=== PATIENT | male | born 1950 | race Two or more races ===

== ENCOUNTER 2025-03-12 05:54 | Inpatient (IN) | payer OTHER ==
[~2025-03-12] VITALS: Ht 188 cm; Wt 96.6 kg
--- NOTE | 2025-03-12 06:29 | ED.PDOC ---
HPI Comments 74-year-old male with PMHx of HTN presents to the ED with a chief complaint of palpitations onset today. Patient states he woke up this morning experiencing palpitations, checked his BP and was elevated. Upon ED arrival, BP was 413/74, HR 91, states symptoms have improved since then. Denies fever, chills, cough, cold, congestion, dizziness, abdominal pain, nausea, vomiting, diarrhea, dysuria, hematuria, headache. No other symptoms or modifying factors present at this time. Chief Complaint: Palpitations Time Seen by MD: 06:10 Reviewed Notes: Medications, Allergies Allergies: Coded Allergies: NO KNOWN ALLERGIES (Unverified , 03/12/25) Information Source: Patient, Relative Mode of Arrival: Wheelchair Severity: Moderate Timing: Hours Duration: Since onset Prehospital treatment: None Onset: At Rest Cardiac Risk Factors: HTN PE Risk Factors: None History of: None Modifying Factors: Nothing Associated Signs and Symptoms: Palpitations Past Medical History PAST MEDICAL HISTORY: HTN Surgical History: Hernia Repair Family History Family History: Reviewed,noncontributory to illness, No family hx of Cancer, No family hx of DM, No family hx of Heart gaetano, No family hx of HTN, No family hx ofKidney gaetano, No family hx of Liver gaetano, No family hx of Lung gaetano, No family hx of Stroke Social History Smoker: Non-Smoker Alcohol: Denies ETOH Use Drugs: Denies Drug Use Lives In: Home Constitutional: denies: chills, diaphoresis, fatigue, fever, malaise, sweats, weakness, others EENTM: denies: blurred vision, double vision, ear bleeding, ear discharge, ear drainage, ear pain, ear ringing, eye pain, eye redness, hearing loss, mouth pain, mouth swelling, nasal discharge, nose bleeding, nose congestion, nose pain, photophobia, tearing, throat pain, throat swelling, voice changes, others Respiratory: denies: cough, hemoptysis, orthopnea, SOB at rest, shortness of breath, SOB with excertion, stridor, wheezing, others Cardiovascular: reports: palpitations, others (hypertension); denies: chest pain, dizzy spells, diaphoresis, Dyspnea on exertion, edema, irregular heart beat, left arm pain, lightheadedness, PND, syncope Gastrointestinal: denies: abdomen distended, abdominal pain, blood streaked bowels, constipated, diarrhea, dysphagia, difficulty swallowing, hematemesis, melena, nausea, poor appetite, poor fluid intake, rectal bleeding, rectal pain, vomiting, others Genitourinary: denies: burning, dysuria, flank pain, frequency, hematuria, incontinence, penile discharge, penile sore, pain, testicle pain, testicle swelling, urgency, others Neurological: denies: dizziness, fainting, headache, left sided numbness, left sided weakness, numbness, paresthesia, pre-existing deficit, right sided numbness, right sided weakness, seizure, speech problems, tingling, tremors, weakness, others Musculoskeletal: denies: back pain, gout, joint pain, joint swelling, muscle pain, muscle stiffness, neck pain, others Integumetry: denies: bruises, change in color, change in hair/nails, dryness, laceration, lesions, lumps, rash, wounds, others Allergic/Immunocompromised: denies: Difficulty Healing, Frequent Infections, Hives, Itching, others Hematologic/Lymphatic: denies: anemia, blood clots, easy bleeding, easy bruising, swollen glands, others Endocrine: denies: excessive hunger, excessive sweating, excessive thirst, excessive urination, flushing, intolerance to cold, intolerance to heat, unexplained weight gain, unexplained weight loss, others Psychiatric: denies: anxiety, bipolar disorder, depression, hopeless, panic disorder, schizophrenia, sleepless, suicidal, others All Other Systems: Reviewed and Negative Physical Exam General Appearance: Moderate Distress, Normal HEENT: Normal ENT Inspection, Pharynx Normal, TMs Normal Neck: Full Range of Motion, Non-Tender, Normal, Normal Inspection Respiratory: Chest Non-Tender, Lungs Clear, No Accessory Muscle Use, No Respiratory Distress, Normal Breath Sounds Cardiovascular: No Edema, No JVD, No Murmur, No Gallop, Normal Peripheral Pulses, Regular Rate/Rhythm Breast Exam: Deferred Gastrointestinal: No Organomegaly, Non Tender, No Pulsatile Mass, Normal Bowel Sounds, Soft Genitalia: Deferred Pelvic: Deferred Rectal: Deferred Extremities: No calf tenderness, Normal capillary refill, Normal inspection, Normal range of motion, Non-tender, No pedal edema Musculoskeletal : Apperance: Normal Neurologic: Alert, executive legal secretary II-XII nml as Tested, No Motor Deficits, Normal Affect, Normal Mood, No Sensory Deficits Cerebellar Function: Normal Reflexes: Normal Skin: Dry, Normal Color, Warm Peripheral Pulses: 3+ Radial (R), 3+ Radial (L) Lymphatic: No Adenopathy EKG EKG : Pulse Rate (adult): 81 Cardiac Rhythm: NSR Was a procedure done? Was a procedure done?: No CP Differential Dx Differential Diagnosis: A-fib, A-Flutter, Angina, Anxiety / Panic Attack, Atr ial Dysrhythmia, Electrolyte Disorder X-Ray, Labs, Meds, VS Vital Signs Date Time Temp Pulse Resp B/P (MAP) Pulse Ox O2 Delivery O2 Flow Rate FiO2 03/12/25 07:51 98.2 62 16 141/70 (93) 94 98.2 03/12/25 07:11 76 03/12/25 06:29 81 03/12/25 05:57 98.0 91 20 143/74 98 98.0 Lab Test 03/12/25 07:10 03/12/25 06:14 Range/Units Troponin I High Sensitivity 28 18 </=54 ng/L White Blood Count 8.0 4.4-10.8 10^3/uL Red Blood Count 4.64 4.5-5.90 10^6/uL Hemoglobin 14.5 13.5-17.5 g/dL Hematocrit 43.8 41.0-53.0 % Mean Corpuscular Volume 94.3 80.0-100.0 fL Mean Corpuscular Hemoglobin 31.3 28.0-32.0 pg Mean Corpuscular Hemoglobin Concent 33.1 32.0-36.0 g/dL Red Cell Distribution Width 14.0 11.8-14.3 % Platelet Count 269 140-450 10^3/uL Mean Platelet Volume 9.2 6.9-10.8 fL Neutrophils (%) (Auto) 74.9 37.0-80.0 % Lymphocytes (%) (Auto) 12.0 10.0-50.0 % Monocytes (%) (Auto) 11.0 0.0-12.0 % Eosinophils (%) (Auto) 1.2 0.0-7.0 % Basophils (%) (Auto) 0.9 0.0-2.0 % Neutrophils # (Auto) 6.0 1.6-8.6 10 ^3/uL Lymphocytes # (Auto) 1.0 0.4-5.4 10 ^3/uL Monocytes # (Auto) 0.9 0-1.3 10 ^3/uL Eosinophils # (Auto) 0.1 0-0.8 10 ^3/uL Basophils # (Auto) 0.1 0-0.2 10 ^3/uL Nucleated Red Blood Cells 0.1 % Sodium Level 137 136-145 mmol/L Potassium Level 4.0 3.5-5.1 mmol/L Chloride Level 100 98-107 mmol/L Carbon Dioxide Level 27 20-31 mmol/L Anion Gap 10 5-15 Blood Urea Nitrogen 13 9-23 mg/dL Creatinine 0.82 0.700-1.30 mg/dL Glomerular Filtration Rate Calc 91 >90 mL/min BUN/Creatinine Ratio 15.9 10.0-20.0 Serum Glucose 111 H 74-106 mg/dL Calcium Level 9.6 8.7-10.4 mg/dL Patient alert. Came in because of chest pain. Vitals stable. Answering questions. EKG reviewed does not show any acute changes. No sign of distress. Blood pressure slightly high. He does take his medication. Explained to the patient. Continue monitoring. [place] [address] Ph: [phone] DIAGNOSTIC IMAGING Diagnostic Imaging Report : [id number] Signed PATIENT: SYLVIA REGAN ACCT: [id number] UNIT: [id number] : 1950 LOC: ER ROOM / BED: / AGE / SEX: 74 / M ADM STATUS: REG ER SERVICE 9 ORDERING PHYSICIAN: SHONDA DAWKINS MD PROCEDURE(s): CXRP - CHEST PORTABLE REASON: sob ORDER NUMBER(s): [id number], ACCESSION NUMBER(s): [id number] CHEST RADIOGRAPH Indication: sob Technique: Single frontal view of the chest was obtained. Comparison: None FINDINGS: Lines and Tubes: None Lungs: No focal consolidation. Pleura: No effusion. No pneumothorax. Cardiomediastinal contours: Unremarkable Bones: No acute osseous abnormality. IMPRESSION: 1. No acute cardiopulmonary disease. ATED BY: PATRICIA MILLIGAN MD DICTATED DATE/TIME: 03/12/25750 SIGNED BY: PATRICIA MILLIGAN MD SIGNED DATE/TIME: 03/12/25750 CC: Time of 1ST Reevaluation: 06:40 Reevaluation 1ST: Unchanged Patient Education/Counseling: Diagnosis, Treatment, Prognosis Family Education/Counseling: Diagnosis, Treatment, Prognosis SEPSIS Sepsis Screen Date sepsis recognized/suspect: Mar 12, 2025 Time Sepsis recognized/suspect: 0558 Recent Procedure: No On Antibiotic Therapy: No Respiratory Rate >20: No Heart Rate >90: Yes Temp<36 C (96.8 F) or >38.3 C: No SBP <90 or MAP <65 mmHG: No New Acute Mental Status Change: No Is the patient on CPAP, BIPAP,: No Physician Orders Chest Portable (03/12/25 06:30) Urinalysis (03/12/25 06:30) Troponin-I Hs (03/12/25 09:30) Vital Signs Date Time Temp Pulse Resp B/P (MAP) Pulse Ox O2 Delivery O2 Flow Rate FiO2 03/12/25 07:51 98.2 62 16 141/70 (93) 94 98.2 03/12/25 07:11 76 03/12/25 06:29 81 03/12/25 05:57 98.0 91 20 143/74 98 98.0 Laboratory Tests Test 03/12/25 06:14 White Blood Count 8.0 10^3/uL (4.4-10.8) Departure 1 Departure Time of Disposition: 06:48 Impression: Primary Impression: Chest pain of unknown etiology Additional Impression: Hypertension Qualified Codes: I10 - Essential (primary) hypertension Disposition: 09 ADMITTED INPATIENT Admit to: Med Surg Condition: Guarded Critical Care Note Critical Care Time?: No Stability Stability form required: No Heart Score Heart Score: Heart Score Response (Comments) Value History Slightly Suspicious 0 EKG Normal 0 Age >65 2 Risk Factors >3 or Hx ASHD 2 Troponin Normal limit 0 Total 4 I personally scribed for SHONDA DAWKINS MD ([email or web address]) on 03/12/25 at 06:29. Electronically submitted by Pamela Norman ([email or web address]). I personally scribed for SHONDA DAWKINS MD ([email or web address]) on 03/12/25 at 06:30. Electronically submitted by Pamela Norman ([email or web address]). I personally scribed for SHONDA DAWKINS MD ([email or web address]) on 03/12/25 at 08:00. Electronically submitted by Pamela Norman ([email or web address]). SHONDA DAWKINS MD Mar 12, 2025 06:29
[2025-03-12 07:01] LABS: Hematocrit 43.8 % (41.0-53.0); Hemoglobin 14.5 g/dL (13.5-17.5); Mean Corpuscular Hemoglobin 31.3 pg (28.0-32.0); Mean Corpuscular Volume 94.3 fL (80.0-100.0); Nucleated Red Blood Cells % 0.1 %
[2025-03-12 07:10] LABS: Chloride 100 mmol/L (98-107); Potassium 4.0 mmol/L (3.5-5.1); Sodium 137 mmol/L (136-145)
[2025-03-12 07:11] LABS: Anion Gap 10 (5-15); Carbon Dioxide 27 mmol/L (20-31)
[2025-03-12 07:12] LABS: Calcium 9.6 mg/dL (8.7-10.4)
--- NOTE | 2025-03-12 07:15 | ECG ---
[facility] Test Date: 2025-03-12 Test Time: 06:07:03 Pat Name: SYLVIA REGAN Department: Room: [address] [place] [address] Gender: M Release Engineer: ALICIA : 1950 Requested By: SHONDA DAWKINS Order Number: [id number] Reading MD: Aneesh Borrego Measurements Intervals [place] Rate: 84 P: 65 SD: 156 QRS: 88 QRSD: 92 T: -12 QT: 372 QTc: 440 Interpretive Statements Sinus rhythm Probable left atrial enlargement Borderline right axis deviation Nonspecific repol abnormality, diffuse leads Electronically Signed On 03-12-2025 15:08:57 PST by Aneesh Borrego Please click the below link to view image of tracing.
[2025-03-12 07:16] LABS: BUN/Creatinine Ratio 15.9 (10.0-20.0); Blood Urea Nitrogen 13 mg/dL (9-23)
[2025-03-12 07:19] LABS: Glucose 111 mg/dL (74-106)
--- NOTE | 2025-03-12 07:53 | DVH ---
CHEST RADIOGRAPH Indication: sob Technique: Single frontal view of the chest was obtained. Comparison: None FINDINGS: Lines and Tubes: None Lungs: No focal consolidation. Pleura: No effusion. No pneumothorax. Cardiomediastinal contours: Unremarkable Bones: No acute osseous abnormality. IMPRESSION: 1. No acute cardiopulmonary disease.
[2025-03-12 08:54] LABS: Urine Protein, UAD 1+ (Negative)
[2025-03-12] MEDS ORDERED: DOCUSATE SOD 100 MG CAP PO PRN (09:30)
[2025-03-12] MEDS ORDERED: HYDROcodone-ACET 5/325MG TAB PO PRN (09:30)
[2025-03-12] MEDS ORDERED: ONDANSETRON HCL 4 MG/2 ML VIAL IV PRN (09:30)
[2025-03-12] MEDS: LOSARTAN POTASSIUM 50 MG TAB PO SCH (10:00)
[2025-03-12] MEDS ORDERED: NITROGLYCERIN 0.4 MG SL TAB SL PRN (10:00)
[2025-03-12] MEDS ORDERED: MORPHINE SULFATE INJ 2 MG/ml SYRG IV PRN (10:00)
--- NOTE | 2025-03-12 10:07 | DVHHP2 ---
History of Present Illness Reason for Visit: Palpitations History of Present Illness The patient is a 74-year-old male with past medical history of hypertension who presented to [facility] ED with complaint of palpitations. Patient reports that symptoms wake him up this morning with elevated blood pressure 213/74, heart rate 91, so he decided to come to the ED. Patient was seen and evaluated in the ED, laboratory data shows WBC 8.0, platelets 269, sodium 137, potassium 4.0, BUN 13, creatinine 0.82, GFR 91, glucose 111, calcium 9.6, troponin 18, blood pressure 141/70, heart rate 62, temperature 98.2 F, O2 saturation 95% on room air. Chest x-ray show no acute cardiopulmonary disease. Please see medication orders section in the computer. On my assessment, son at bedside, patient denied chest pain, no headache, dizziness, diaphoresis, shortness of breaths, no diarrhea, nausea, vomiting, fever, no chills. Patient was admitted for further evaluation and medical management. Past Medical History HTN Past Surgical History Hernia Repair Family History Reviewed, noncontributory to the management of this case. Past Social History The patient lives at home, denies smoking, alcohol or illicit drugs abuse. Review of Systems Constitutional: Yes: Weakness; No: Fever, Chills, Sweats, Malaise, Other Eyes: No: Pain, Vision change, Conjunctivae inflammation, Eyelid inflammation, Other, Redness ENT: No: Ear pain, Ear discharge, Nose pain, Nose discharge, Nose congestion, Mouth pain, Mouth swelling, Throat pain, Throat swelling, Other Respiratory: No: Cough, Dry, Shortness of breath, SOB with excertion, Wheezing, Hemoptysis, Pleuritic Pain, Sputum, Wheezing, Other Cardiovascular: Chest Pain, Palpitations; No: Orthopnea, Paroxysmal Noc. Dyspnea, Edema, Lt Headedness, Other Gastrointestinal: No: Nausea, Vomiting, Abdominal Pain, Diarrhea, Constipation, Melena, Hematochezia, Other Genitourinary: No Dysuria, No Frequency, No Incontinence, No Hematuria, No Retention, No Other Musculoskeletal: No: other, neck pain, shoulder pain, arm pain, back pain, hand pain, leg pain, foot pain Skin: No: Rash, Lesions, Jaundice, Bruising, Other Neurological: No: Weakness, Numbness, Incoordination, Change in speech, Confusion, Seizures, Other Allergies: Coded Allergies: NO KNOWN ALLERGIES (Unverified , 03/12/25) Medications Current Medications Medications Dose Ordered Sig/Vanessa Route Start Time Stop Time Status Last Admin Dose Admin Aspirin 81 mg DAILY PO 03/12/25 10:00 Losartan Potassium 50 mg DAILY PO 03/12/25 10:00 Amlodipine Besylate 5 mg DAILY PO 03/12/25 10:00 Hydralazine HCl 10 mg Q6HP PRN IV 03/12/25 09:30 Sodium Chloride 1,000 ml @ 60 mls/hr [id number] IV 03/12/25 09:30 Acetaminophen/ Hydrocodone Bitart 1 tab Q4HP PRN PO 03/12/25 09:30 Ondansetron HCl 4 mg Q4HP PRN IV 03/12/25 09:30 Docusate Sodium 100 mg BIDPRN PRN PO 03/12/25 09:30 Acetaminophen 650 mg Q6HP PRN PO 03/12/25 09:30 Exam Vital Signs Vital Signs Date Time Temp Pulse Resp B/P (MAP) Pulse Ox O2 Delivery O2 Flow Rate FiO2 03/12/25 07:51 98.2 62 16 141/70 (93) 94 98.2 General Appearance: Alert, Oriented X3, Cooperative, No acute distress HEENT: Atraumatic, PERRLA, EOMI, Mucous membr. moist/pink Respiratory: Normal air movement Cardiovascular: Regular rate, Normal S1, Normal S2, No murmurs Abdominal: Normal bowel sounds, Soft, No tenderness, No hepatospenomegaly, No masses Extremities: No clubbing, No cyanosis, No edema, Normal pulses, No tenderness/swelling Skin: No rashes, No significant lesion Neuro: Normal speech, Normal tone, Sensation intact, Cranial nerves 3-12 NL, Reflexes 2+, Other (Generalized weakness) Psych/Mental Status: Mental status NL, Mood NL Labs/Xrays Labs Test 03/12/25 09:14 03/12/25 08:06 03/12/25 06:14 Range/Units Urine Color Yellow Yellow Urine Clarity Clear Clear Urine pH 6.0 5.0-9.0 Urine Specific [place] 1.021 1.001-1.035 Urine Protein 1+ H Negative Urine Ketones 1+ H Negative Urine Blood 1+ H Negative /uL Urine Nitrite Negative Negative Urine Bilirubin Negative Negative Urine Urobilinogen Normal Negative mg/dL Urine Leukocyte Esterase Negative Negative /uL Urine RBC 7 0 - 3 /hpf Urine Microscopic WBC < 1 0-3 /HPF Urine Squamous Epithelial Cells None seen <5 /hpf Urine Bacteria None seen None Seen /hpf Urine Glucose Normal Normal mg/dL White Blood Count 8.0 4.4-10.8 10^3/uL Red Blood Count 4.64 4.5-5.90 10^6/uL Hemoglobin 14.5 13.5-17.5 g/dL Hematocrit 43.8 41.0-53.0 % Mean Corpuscular Volume 94.3 80.0-100.0 fL Mean Corpuscular Hemoglobin 31.3 28.0-32.0 pg Mean Corpuscular Hemoglobin Concent 33.1 32.0-36.0 g/dL Red Cell Distribution Width 14.0 11.8-14.3 % Platelet Count 269 140-450 10^3/uL Mean Platelet Volume 9.2 6.9-10.8 fL Neutrophils (%) (Auto) 74.9 37.0-80.0 % Lymphocytes (%) (Auto) 12.0 10.0-50.0 % Monocytes (%) (Auto) 11.0 0.0-12.0 % Eosinophils (%) (Auto) 1.2 0.0-7.0 % Basophils (%) (Auto) 0.9 0.0-2.0 % Neutrophils # (Auto) 6.0 1.6-8.6 10 ^3/uL Lymphocytes # (Auto) 1.0 0.4-5.4 10 ^3/uL Monocytes # (Auto) 0.9 0-1.3 10 ^3/uL Eosinophils # (Auto) 0.1 0-0.8 10 ^3/uL Basophils # (Auto) 0.1 0-0.2 10 ^3/uL Nucleated Red Blood Cells 0.1 % Sodium Level 137 136-145 mmol/L Potassium Level 4.0 3.5-5.1 mmol/L Chloride Level 100 98-107 mmol/L Carbon Dioxide Level 27 20-31 mmol/L Anion Gap 10 5-15 Blood Urea Nitrogen 13 9-23 mg/dL Creatinine 0.82 0.700-1.30 mg/dL Glomerular Filtration Rate Calc 91 >90 mL/min BUN/Creatinine Ratio 15.9 10.0-20.0 Serum Glucose 111 H 74-106 mg/dL Calcium Level 9.6 8.7-10.4 mg/dL PATIENT: SYLVIA REGAN ACCT: [id number] UNIT: [id number] : 1950 LOC: ER ROOM / BED: / AGE / SEX: 74 / M ADM STATUS: REG ER SERVICE 9 ORDERING PHYSICIAN: SHONDA DAWKINS MD PROCEDURE(s): CXRP - CHEST PORTABLE REASON: sob ORDER NUMBER(s): [id number], ACCESSION NUMBER(s): [id number] CHEST RADIOGRAPH Indication: sob Technique: Single frontal view of the chest was obtained. Comparison: None FINDINGS: Lines and Tubes: None Lungs: No focal consolidation. Pleura: No effusion. No pneumothorax. Cardiomediastinal contours: Unremarkable Bones: No acute osseous abnormality. IMPRESSION: 1. No acute cardiopulmonary disease. SEPSIS Sepsis Screen Date sepsis recognized/suspect: Mar 12, 2025 Time Sepsis recognized/suspect: 808 Recent Procedure: No On Antibiotic Therapy: No Respiratory Rate >20: No Heart Rate >90: No Temp<36 C (96.8 F) or >38.3 C: No SBP <90 or MAP <65 mmHG: No New Acute Mental Status Change: No Is the patient on CPAP, BIPAP,: No Physician Orders Chest Portable (03/12/25 06:30) Troponin-I Hs (03/12/25 09:30) Aspirin Chewable Tablet (03/12/25 10:00) Losartan Tablet (Cozaar Tablet) (03/12/25 10:00) Amlodipine Tablet (Norvasc Tablet) (03/12/25 10:00) Hydralazine Injection (Apresoline Inject (03/12/25 09:30) Allergies (03/12/25 09:21) Code Status (03/12/25 09:21) Sodium Chloride 0.9% (03/12/25 09:30) Oxygen Per Hour (03/12/25 09:21) Hydrocodone-Acet 5/325mg Tab ([place] 5/32 (03/12/25 09:30) Ondansetron Hcl (Zofran) (03/12/25 09:30) Docusate Sodium Capsule (Colace Capsule) (03/12/25 09:30) Fall Risk Precautions In Place QSHIFT (03/12/25 09:21) Complete Blood Count (03/13/25 04:00) Comprehensive Metabolic Panel (03/13/25 04:00) Cardiac Diet-2gna,Lofat,Lochol (03/12/25 Breakfast) Condition: Serious (03/12/25 09:21) Acetaminophen Tablet (Tylenol Tablet) (03/12/25 09:30) Maintain Bed Rest (03/12/25 09:21) Sequential Compression Device (03/12/25 ) Vital Signs Date Time Temp Pulse Resp B/P (MAP) Pulse Ox O2 Delivery O2 Flow Rate FiO2 03/12/25 07:51 98.2 62 16 141/70 (93) 94 98.2 03/12/25 07:11 76 03/12/25 06:29 81 03/12/25 05:57 98.0 91 20 143/74 98 98.0 Laboratory Tests Test 03/12/25 06:14 White Blood Count 8.0 10^3/uL (4.4-10.8) Assessment/Plan Assessment/Plan Chest pain of unknown etiology Hypertension Palpitations Generalized weakness Plan 1. Admit to telemetry unit 2. Breathing treatment 3. Pain control management 4. Management of fluids and electrolytes 5. Consultation for hospitalist 6. Diagnostic tests chest x-ray 7. DVT prophylaxis-on aspirin 8. Repeat labs CBC, CMP in a.m. 9. Continue with current medical management 10. Treatment plan discussed with patient and RN. Patient verbalized understanding. Plan discussed with: Patient, Other (RN) My Orders Orders - JUANA HOPKINS DNP Procedure Category Date Status Time Aspirin Chewable PHA 03/12/25 In Process Tablet 10:00 Losartan Tablet PHA 03/12/25 In Process (Cozaar Tablet) 10:00 Amlodipine Tablet PHA 03/12/25 In Process (Norvasc Tablet) 10:00 Hydralazine Injection PHA 03/12/25 In Process (Apresoline Inject 09:30 Allergies TESHA 03/12/25 In Process 09:21 Code Status CODE 03/12/25 Transmitted 09:21 Sodium Chloride 0.9% PHA 03/12/25 In Process 09:30 Oxygen Per Hour RT 03/12/25 Transmitted 09:21 Hydrocodone-Acet PHA 03/12/25 In Process 5/325mg Tab ([place] 09:30 Ondansetron Hcl PHA 03/12/25 In Process (Zofran) 09:30 Docusate Sodium PHA 03/12/25 In Process Capsule (Colace 09:30 Fall Risk Precautions TESHA 03/12/[address] 09:21 Complete Blood Count LAB 03/13/25 Verified 04:00 Comprehensive LAB 03/13/25 Verified Metabolic Panel 04:00 Cardiac DIET 03/12/25 Transmitted Diet-2gna,Lofat,Lochol Breakfast Condition: Serious TESHA 03/12/25 In Process 09:21 Acetaminophen Tablet PHA 03/12/25 In Process (Tylenol Tablet) 09:30 Maintain Bed Rest TESHA 03/12/25 In Process 09:21 Sequential TESHA 03/12/25 In Process Compression Device Problem List: (1) Chest pain of unknown etiology (2) Hypertension (3) Palpitations (4) Generalized weakness Date of Service: Mar 12, 2025 Billing Provider: JUANA HOPKINS DNP Common Visit Codes: 36032-FOHPGFG INP/OBS CARE (HIGH) JUANA HOPKINS DNP Mar 12, 2025 10:07
[2025-03-12] MEDS: SODIUM CHLORIDE 0.9% 1,000 ML IV SCH (11:27)
[2025-03-12 14:00] VITALS: PULSE 63; RESP 16; O2SAT 94
[2025-03-12 20:26] VITALS: BP 188/81; PULSE 76; RESP 18; TEMP 97.4; O2SAT 92
[2025-03-12] MEDS ORDERED: LOSA-534 PO (20:35)
[2025-03-12] MEDS ORDERED: CLON0.1T PO (20:35)
[2025-03-12] MEDS ORDERED: AMLO1TAB22 PO (20:35)
[2025-03-12 20:37] VITALS: BP 188/81; PULSE 76; RESP 18; TEMP 97.4; O2SAT 92
[2025-03-12] MEDS: hydrALAZINE HCL 20 MG/ML VL IV PRN (22:00)
[2025-03-13] VITALS (8 sets, daily range): BP systolic 135–174; BP diastolic 64–76; PULSE 57–85; RESP 17–22; TEMP 97.5–99.8; O2SAT 89–95
[2025-03-13 06:03] LABS: Hematocrit 39.3 % (41.0-53.0); Hemoglobin 13.6 g/dL (13.5-17.5); Mean Corpuscular Hemoglobin 32.3 pg (28.0-32.0); Mean Corpuscular Volume 93.0 fL (80.0-100.0); Nucleated Red Blood Cells % 0.0 %
[2025-03-13 06:27] LABS: Alanine Aminotransferase 12 U/L (7-40); Albumin 3.7 g/dL (3.2-4.8); Alkaline Phosphatase 50 U/L (46-116); Anion Gap 9 (5-15); BUN/Creatinine Ratio 21.2 (10.0-20.0); Blood Urea Nitrogen 14 mg/dL (9-23); Calcium 9.1 mg/dL (8.7-10.4); Carbon Dioxide 25 mmol/L (20-31); Chloride 104 mmol/L (98-107); Potassium 3.9 mmol/L (3.5-5.1); Sodium 138 mmol/L (136-145); Total Protein 7.1 g/dL (5.7-8.2)
[2025-03-13 06:28] LABS: Bilirubin, Total 0.7 mg/dL (0.2-1.0)
[2025-03-13 06:31] LABS: Glucose 111 mg/dL (74-106)
--- NOTE | 2025-03-13 14:04 | DVHPN2 ---
Subjective Patient denies any symptoms at this time Reviewed: Care Plan, H&P, Labs, Medications, Previous Orders Changes from previous H/P or p: No Changes Eyes: No Pain, No Vision change, No Conjunctivae inflammation, No Eyelid inflammation, No Other, No Redness ENT: No Ear pain, No Ear discharge, No Nose pain, No Nose discharge, No Nose congestion, No Mouth pain, No Mouth swelling, No Throat pain, No Throat swelling, No Other Cardiovascular: Chest Pain, Palpitations; No Orthopnea, No Paroxysmal Noc. Dyspnea, No Edema, No Lt Headedness, No Other Respiratory: No Cough, No Dry, No Shortness of breath, No SOB with excertion, No Wheezing, No Hemoptysis, No Pleuritic Pain, No Sputum, No Other Gastrointestinal: No Nausea, No Vomiting, No Abdominal Pain, No Diarrhea, No Constipation, No Melena, No Hematochezia, No Other Genitourinary: No Dysuria, No Frequency, No Incontinence, No Hematuria, No Retention, No Other Musculoskeletal: No other, No neck pain, No shoulder pain, No arm pain, No back pain, No hand pain, No leg pain, No foot pain Skin: No Rash, No Lesions, No Jaundice, No Bruising, No Other Objective Vitals Vital Signs Date Time Temp Pulse Resp B/P (MAP) Pulse Ox O2 Delivery O2 Flow Rate FiO2 03/13/25 12:27 97.7 66 17 163/75 (104) 95 97.7 03/13/25 08:00 Room Air* 0 21 Intake/Output Intake and Output 03/13/25 07:00 Intake Total 250 ml Balance 250 ml Intake Oral 250 ml # Voids 1 General Appearance: Alert, Oriented X3, Cooperative, mild distress HEENT: Atraumatic, PERRLA Lungs: Clear to auscultation, Normal air movement Cardiovascular: Normal S1, Normal S2 Abdomen: Normal bowel sounds, Soft, No tenderness, No hepatospenomegaly Musculoskeletal: Normal sensory function, Normal motor function Extremities: No clubbing, No cyanosis Neuro: Normal gait, Normal speech Skin: Dry Psych/Mental Status: Mental status NL, Mood NL Medications Current Medications Medications Dose Ordered Sig/Vanessa Route Start Time Stop Time Status Last Admin Dose Admin Aspirin 81 mg DAILY PO 03/12/25 10:00 03/13/25 09:20 81 MG Losartan Potassium 50 mg DAILY PO 03/12/25 10:00 03/13/25 09:20 50 MG Hydralazine HCl 10 mg Q6HP PRN IV 03/12/25 09:30 03/13/25 12:04 10 MG Sodium Chloride 1,000 ml @ 60 mls/hr [id number] IV 03/12/25 09:30 03/13/25 02:40 60 MLS/HR Acetaminophen/ Hydrocodone Bitart 1 tab Q4HP PRN PO 03/12/25 09:30 Ondansetron HCl 4 mg Q4HP PRN IV 03/12/25 09:30 Docusate Sodium 100 mg BIDPRN PRN PO 03/12/25 09:30 Acetaminophen 650 mg Q6HP PRN PO 03/12/25 09:30 Nitroglycerin 0.4 mg Q5MINP PRN SL 03/12/25 10:00 Morphine Sulfate 2 mg Q30M PRN IV 03/12/25 10:00 Amlodipine Besylate 5 mg HS PO 03/12/25 10:15 03/12/25 21:58 5 MG Laboratory Results Laboratory Tests 03/13/25 05:24 Chemistry Test 03/13/25 05:24 Albumin 3.7 g/dL (3.2-4.8) Calcium Level 9.1 mg/dL (8.7-10.4) Total Protein 7.1 g/dL (5.7-8.2) LFT Test 03/13/25 05:24 Alanine Aminotransferase (ALT) 12 U/L (7-40) Alkaline Phosphatase 50 U/L (46-116) Aspartate Amino Transferase (AST) 17 U/L (13-40) Total Bilirubin 0.7 mg/dL (0.2-1.0) Urinalysis Test 03/12/25 08:06 Urine Color Yellow (Yellow) Urine Clarity Clear (Clear) Urine pH 6.0 (5.0-9.0) Urine Specific [place] 1.021 (1.001-1.035) Urine Protein 1+ (Negative) H Urine Ketones 1+ (Negative) H Urine Blood 1+ /uL (Negative) H Urine Nitrite Negative (Negative) Urine Bilirubin Negative (Negative) Urine Urobilinogen Normal mg/dL (Negative) Urine Leukocyte Esterase Negative /uL (Negative) Urine RBC 7 /hpf (0 - 3) Urine Microscopic WBC < 1 /HPF (0-3) Urine Squamous Epithelial Cells None seen /hpf (<5) Urine Bacteria None seen /hpf (None Seen) Urine Glucose Normal mg/dL (Normal) Labs and/or images reviewed: Labs reviewed by me, Image(s) reviewed by me Assessment/Plan Assessment/Plan Impression: -palpitations, rule out paroxysmal atrial fibrillation -history of nicotine dependence, greater than 40 pack year history -accelerated hypertension Plan: -echocardiogram -continue bedside telemetry monitoring -continue current antihypertensives -center cardiology consultation based on findings of echo Total time spent with patient discussing and formulating plan of care: 35 minutes. This medical document was created using an electronic medical record system with [employer] dictation system. Although this document has been carefully reviewed, there may still be some phonetic and typographical errors. These areas are purely typographical due to imperfections of the software programs, and do not reflect any compromise in the patient's medical care. Plan discussed with: Patient, Other (RN) Date of Service: Mar 13, 2025 Billing Provider: KATHRIN VILLAGRAN NP Common Visit Codes: [id number] INP/OBS CARE(HIGH) KATHRIN VILLAGRAN NP Mar 13, 2025 14:04
[2025-03-14 01:11] VITALS: BP 128/68; PULSE 78; RESP 16; RESP 91; TEMP 100.5; O2SAT 91
[2025-03-14] MEDS: ACETAMINOPHEN 325 MG TAB PO PRN (01:22)
[2025-03-14 05:00] VITALS: BP 143/74; PULSE 73; RESP 16; TEMP 100.1; O2SAT 93
[2025-03-14 08:10] VITALS: RESP 17
[2025-03-14 09:00] VITALS: BP 155/76; PULSE 75; RESP 16; TEMP 98.1; O2SAT 94
--- NOTE | 2025-03-14 09:56 | DVHPN2 ---
Subjective Patient is here for palpitations and chest pain. Reviewed: Care Plan, H&P, Labs, Medications, Previous Orders Changes from previous H/P or p: No Changes Eyes: No Pain, No Vision change, No Conjunctivae inflammation, No Eyelid inflammation, No Other, No Redness ENT: No Ear pain, No Ear discharge, No Nose pain, No Nose discharge, No Nose congestion, No Mouth pain, No Mouth swelling, No Throat pain, No Throat swelling, No Other Cardiovascular: Chest Pain, Palpitations; No Orthopnea, No Paroxysmal Noc. Dyspnea, No Edema, No Lt Headedness, No Other Respiratory: No Cough, No Dry, No Shortness of breath, No SOB with excertion, No Wheezing, No Hemoptysis, No Pleuritic Pain, No Sputum, No Other Gastrointestinal: No Nausea, No Vomiting, No Abdominal Pain, No Diarrhea, No Constipation, No Melena, No Hematochezia, No Other Genitourinary: No Dysuria, No Frequency, No Incontinence, No Hematuria, No Retention, No Other Musculoskeletal: No other, No neck pain, No shoulder pain, No arm pain, No back pain, No hand pain, No leg pain, No foot pain Skin: No Rash, No Lesions, No Jaundice, No Bruising, No Other Objective Vitals Vital Signs Date Time Temp Pulse Resp B/P (MAP) Pulse Ox O2 Delivery O2 Flow Rate FiO2 03/14/25 08:10 17 Room Air* 0 21 03/14/25 05:00 100.1 73 143/74 (97) 93 100.1 Intake/Output Intake and Output 03/14/25 07:00 Intake Total 1400 ml Balance 1400 ml Intake Oral 1400 ml # Voids 5 General Appearance: Alert, Oriented X3, Cooperative, mild distress HEENT: Atraumatic, PERRLA Lungs: Clear to auscultation, Normal air movement Cardiovascular: Normal S1, Normal S2 Abdomen: Normal bowel sounds, Soft, No tenderness, No hepatospenomegaly Musculoskeletal: Normal sensory function, Normal motor function Extremities: No clubbing, No cyanosis Neuro: Normal gait, Normal speech Skin: Dry Psych/Mental Status: Mental status NL, Mood NL Medications Current Medications Medications Dose Ordered Sig/Vanessa Route Start Time Stop Time Status Last Admin Dose Admin Aspirin 81 mg DAILY PO 03/12/25 10:00 03/13/25 09:20 81 MG Losartan Potassium 50 mg DAILY PO 03/12/25 10:00 03/13/25 09:20 50 MG Hydralazine HCl 10 mg Q6HP PRN IV 03/12/25 09:30 03/13/25 18:48 10 MG Sodium Chloride 1,000 ml @ 60 mls/hr [id number] IV 03/12/25 09:30 03/13/25 18:29 60 MLS/HR Acetaminophen/ Hydrocodone Bitart 1 tab Q4HP PRN PO 03/12/25 09:30 Ondansetron HCl 4 mg Q4HP PRN IV 03/12/25 09:30 Docusate Sodium 100 mg BIDPRN PRN PO 03/12/25 09:30 Acetaminophen 650 mg Q6HP PRN PO 03/12/25 09:30 03/14/25 01:22 650 MG Nitroglycerin 0.4 mg Q5MINP PRN SL 03/12/25 10:00 Morphine Sulfate 2 mg Q30M PRN IV 03/12/25 10:00 Amlodipine Besylate 5 mg HS PO 03/12/25 10:15 03/13/25 21:39 5 MG Laboratory Results Laboratory Tests 03/13/25 05:24 Urinalysis Test 03/12/25 08:06 Urine Color Yellow (Yellow) Urine Clarity Clear (Clear) Urine pH 6.0 (5.0-9.0) Urine Specific [place] 1.021 (1.001-1.035) Urine Protein 1+ (Negative) H Urine Ketones 1+ (Negative) H Urine Blood 1+ /uL (Negative) H Urine Nitrite Negative (Negative) Urine Bilirubin Negative (Negative) Urine Urobilinogen Normal mg/dL (Negative) Urine Leukocyte Esterase Negative /uL (Negative) Urine RBC 7 /hpf (0 - 3) Urine Microscopic WBC < 1 /HPF (0-3) Urine Squamous Epithelial Cells None seen /hpf (<5) Urine Bacteria None seen /hpf (None Seen) Urine Glucose Normal mg/dL (Normal) Labs and/or images reviewed: Labs reviewed by me, Image(s) reviewed by me Assessment/Plan Assessment/Plan Impression: -Palpitations, rule out paroxysmal atrial fibrillation -History of nicotine dependence, greater than 40 pack year history -Accelerated hypertension -Fever Plan: -Echocardiogram pending -Continue antihypertensives. Start metoprolol. -Repeat labs in the a.m. -Stop normal saline -Continue bedside telemetry monitoring -Center cardiology consultation based on findings of echo Total time spent with patient discussing and formulating plan of care: 35 minutes. Plan discussed with: Patient, Other (RN) Date of Service: Mar 14, 2025 Billing Provider: KATHRIN VILLAGRAN NP Common Visit Codes: [id number] INP/OBS CARE(HIGH) LINK [employer] Mar 14, 2025 09:56
[2025-03-14 10:36] LABS: Hematocrit 41.1 % (41.0-53.0); Hemoglobin 13.8 g/dL (13.5-17.5); Mean Corpuscular Hemoglobin 31.5 pg (28.0-32.0); Mean Corpuscular Volume 93.5 fL (80.0-100.0); Nucleated Red Blood Cells % 0.1 %
[2025-03-14 10:49] LABS: Chloride 102 mmol/L (98-107); Potassium 3.9 mmol/L (3.5-5.1)
[2025-03-14 10:50] LABS: Anion Gap 9 (5-15); Carbon Dioxide 25 mmol/L (20-31)
[2025-03-14 10:51] LABS: Calcium 9.0 mg/dL (8.7-10.4)
[2025-03-14 10:52] LABS: Sodium 136 mmol/L (136-145)
[2025-03-14 10:56] LABS: BUN/Creatinine Ratio 13.7 (10.0-20.0); Blood Urea Nitrogen 10 mg/dL (9-23)
[2025-03-14 11:00] LABS: Glucose 122 mg/dL (74-106)
[2025-03-14] MEDS: METOPROLOL TARTRATE 25 MG TAB PO ONE (11:40)
[2025-03-14] MEDS ORDERED: METO25TA36 PO (12:59)
[2025-03-14 13:00] VITALS: BP 167/73; PULSE 70; RESP 16; TEMP 98.5; O2SAT 94
--- NOTE | 2025-03-14 13:16 | DVHDS2 ---
Discharge Summary Date of Admission Mar 12, 2025 at 09:48 Date of Discharge: Mar 14, 2025 Admitting Diagnosis Palpitations Labs/Diagnostic Data: Laboratory Results Test 03/14/25 10:27 03/13/25 05:24 03/12/25 09:14 03/12/25 08:06 White Blood Count 8.2 10^3/uL (4.4-10.8) Red Blood Count 4.39 10^6/uL (4.5-5.90) Hemoglobin 13.8 g/dL (13.5-17.5) Hematocrit 41.1 % (41.0-53.0) Mean Corpuscular Volume 93.5 fL (80.0-100.0) Mean Corpuscular Hemoglobin 31.5 pg (28.0-32.0) Mean Corpuscular Hemoglobin Concent 33.7 g/dL (32.0-36.0) Red Cell Distribution Width 14.4 % (11.8-14.3) Platelet Count 255 10^3/uL (140-450) Mean Platelet Volume 8.6 fL (6.9-10.8) Neutrophils (%) (Auto) 69.4 % (37.0-80.0) Lymphocytes (%) (Auto) 16.8 % (10.0-50.0) Monocytes (%) (Auto) 12.2 % (0.0-12.0) Eosinophils (%) (Auto) 0.5 % (0.0-7.0) Basophils (%) (Auto) 1.1 % (0.0-2.0) Neutrophils # (Auto) 5.7 10 ^3/uL (1.6-8.6) Lymphocytes # (Auto) 1.4 10 ^3/uL (0.4-5.4) Monocytes # (Auto) 1.0 10 ^3/uL (0-1.3) Eosinophils # (Auto) 0 10 ^3/uL (0-0.8) Basophils # (Auto) 0.1 10 ^3/uL (0-0.2) Nucleated Red Blood Cells 0.1 % Sodium Level 136 mmol/L (136-145) Potassium Level 3.9 mmol/L (3.5-5.1) Chloride Level 102 mmol/L (98-107) Carbon Dioxide Level 25 mmol/L (20-31) Anion Gap 9 (5-15) Blood Urea Nitrogen 10 mg/dL (9-23) Creatinine 0.73 mg/dL (0.700-1.30) Glomerular Filtration Rate Calc 94 mL/min (>90) BUN/Creatinine Ratio 13.7 (10.0-20.0) Serum Glucose 122 mg/dL (74-106) Calcium Level 9.0 mg/dL (8.7-10.4) Total Bilirubin 0.7 mg/dL (0.2-1.0) Aspartate Amino Transferase (AST) 17 U/L (13-40) Alanine Aminotransferase (ALT) 12 U/L (7-40) Alkaline Phosphatase 50 U/L (46-116) Total Protein 7.1 g/dL (5.7-8.2) Albumin 3.7 g/dL (3.2-4.8) Troponin I High Sensitivity 45 ng/L (</=54) Urine Color Yellow (Yellow) Urine Clarity Clear (Clear) Urine pH 6.0 (5.0-9.0) Urine Specific [place] 1.021 (1.001-1.035) Urine Protein 1+ (Negative) Urine Ketones 1+ (Negative) Urine Blood 1+ /uL (Negative) Urine Nitrite Negative (Negative) Urine Bilirubin Negative (Negative) Urine Urobilinogen Normal mg/dL (Negative) Urine Leukocyte Esterase Negative /uL (Negative) Urine RBC 7 /hpf (0 - 3) Urine Microscopic WBC < 1 /HPF (0-3) Urine Squamous Epithelial Cells None seen /hpf (<5) Urine Bacteria None seen /hpf (None Seen) Urine Glucose Normal mg/dL (Normal) Other Laboratory Tests 03/14/25 10:27 Brief Hx & Hospital Course: History of Present Illness The patient is a 74-year-old male with past medical history of hypertension who presented to [facility] ED with complaint of palpitations. Patient reports that symptoms wake him up this morning with elevated blood pressure 213/74, heart rate 91, so he decided to come to the ED. Patient was seen and evaluated in the ED, laboratory data shows WBC 8.0, platelets 269, sodium 137, potassium 4.0, BUN 13, creatinine 0.82, GFR 91, glucose 111, calcium 9.6, troponin 18, blood pressure 141/70, heart rate 62, temperature 98.2 F, O2 saturation 95% on room air. Chest x-ray show no acute cardiopulmonary disease. Please see medication orders section in the computer. On my assessment, son at bedside, patient denied chest pain, no headache, dizziness, diaphoresis, shortness of breaths, no diarrhea, nausea, vomiting, fever, no chills. Patient was admitted for further evaluation and medical management. Course of hospitalization: Patient had no further episodes of palpitations or noted cardiac arrhythmias while in the hospital. Echocardiogram performed, unremarkable findings. Patient will be discharged home and is instructed to continue all previous home antihypertensives. Patient will also be prescribed Toprol-XL 25 mg p.o. daily. He is instructed to follow up with his PCP at next available appointment. Physical examination General: Alert and Oriented x3. No acute distress. Well-nourished. Eyes: EOMI. Anicteric. HENT: Moist mucous membranes. Lungs: Clear to auscultation bilaterally. No accessory muscle use. Cardiovascular: Regular rate and rhythm. No murmur. No JVD. Abdomen: Soft, non-tender and non-distended. No palpable masses. Extremities: No edema. Non-tender. Skin: No rashes or lesions. Warm. Neurologic: No focal neurological deficits. CN II-XII grossly intact, but not individually tested. Psychiatric: Cooperative. Appropriate mood and affect. Total time spent with patient discussing and formulating plan of care: 35 minutes. This medical document was created using an electronic medical record system with [employer] dictation system. Although this document has been carefully reviewed, there may still be some phonetic and typographical errors. These areas are purely typographical due to imperfections of the software programs, and do not reflect any compromise in the patient's medical care. Condition at Discharge: Fair Final Diagnosis/Problems List Palpitations -history of nicotine dependence, greater than 40 pack year history -accelerated hypertension Discharge Disposition: Home Discharge Instruct/Medications Diet: Cardiac 2g Na,low cholest Activity: No Restrictions, As Tolerated Follow Up/Referral: Follow up with PCP in 1-2 weeks Medications: Continue all home medications Toprol-XL 25 mg p.o. daily Scheduled Amlodipine Besylate (Amlodipine Besylate), 100 MG PO DAILY, (Reported) Clonidine Hydrochloride (Clonidine Hcl), 0.1 MG PO BID, (Reported) Losartan Potassium (Losartan Potassium), 50 MG PO DAILY, (Reported) Metoprolol Succinate (Toprol Xl), 1 TAB PO DAILY 36 Discharge Statement: "Patient was advised to return to the ER or call 911 if any headaches, dizziness, shortness of breath, chest pain, abdominal pain, bleeding, fevers, or worsening of medical condition. Patient was counseled about treatment plan, medications, possible side effects, patientverbalized understanding. All questions were answered to the best of my ability. This discharge took greater then 30 minutes in planning, reviewing documentation, counseling the patient, and discussing with other team members." ASSESSMENT ASSESSMENT Assessment Palpitations Date of Service: Mar 14, 2025 Billing Provider: KATHRIN VILLAGRAN NP Common Visit Codes: [id number] DISCH DAY >30min KATHRIN VILLAGRAN NP Mar 14, 2025 13:16
[2025-03-14 16:33] VITALS: BP 160/74; PULSE 72
--- NOTE | 2025-03-14 17:18 | DVHSR ---
APPROVED REPORT EXAM: Two-dimensional and M-mode echocardiogram with Doppler and color Doppler. Blood Pressure: 163/75 mmHg INDICATION paroxysmal a fib, palpitaions RISK FACTORS Obesity: Height: 72, Weight: 212 DIMENSIONS LVDd 4.8 (3.8-5.7cm) LA (2D) 4.6 (1.9-4.0cm) Aortic Root 3.8 (2.0-3.7cm) LVDs 3.0 (2.5-4.0cm) LA (MM) (1.9-4.0cm) Aortic Cusp Exc 1.6 (1.5-2.0cm) EF (%) 60.0 (55-70%) Rt. Atrium 3.7 (1.9-4.0cm) Asc. Aorta cm IVSd 1.1 (0.7-1.1cm) RV (D) 4.2 (1.8-2.4cm) PWd 1.3 (0.7-1.1cm) Mitral Valve Mitral Mitral Stenosis E wave 0.81m/s MV Mean GR. 2mmHg A wave 1.32m/s MV Peak GR. 90mmHg E/A ratio 0.6 2D MVA cm2 DECEL Time 425ms PRESS 1/2 Time ms Aortic Valve Aortic Valve Aortic Stenosis V1 1.31m/s AO Mean GR. 5mmHg V2 1.54m/s AO Peak GR. 9mmHg LVOT Diameter 2.1 (1.8-2.4cm) Doppler DORIS 2.94cm2 Pulmonic Valve V2 1.16m/s Tricuspid Valve TR Velocity 3.41m/s RVSP 56mmHg Other Information Quality : Technically Limited Rhythm : Conclusion LVEF is normal at 60-65%. Right ventricle size and function normal Mild left atrial dilation Moderate pulmonary hypertension, 50-55 mmHg
[2025-03-15] MEDS ORDERED: METOPROLOL TARTRATE 25 MG TAB PO SCH (10:00)
--- NOTE | 2025-03-19 14:11 | ECG ---
[facility] Test Date: 2025-03-12 Test Time: 07:11:30 Pat Name: SYLVIA REGAN Department: Room: 0247T B Gender: M [employer]ician: ZANDRA : 1950 Requested By: SHONDA DAWKINS Order Number: [id number] Reading MD: Aneesh Borrego Measurements Intervals [place] Rate: 76 P: 62 MA: 154 QRS: 87 QRSD: 93 T: 6 QT: 385 QTc: 433 Interpretive Statements Sinus rhythm Probable left atrial enlargement Borderline right axis deviation Minimal ST depression, diffuse leads Electronically Signed On 03-21-2025 18:37:02 PST by Aneesh Borrego Please click the below link to view image of tracing.
== END 2025-03-14 17:15 | disposition home or self-care (01) | DRG 305 ==
LOC: EDBD 05:54 → ER 05:54 → OVERFLOW 09:48 → TELE-EAST 20:22
PROVIDERS: ADMIT Nurse Practitioner Acute Care; ATTEND Nurse Practitioner Acute Care
DX: I16.0 Hypertensive urgency (principal); I48.91 Unspecified atrial fibrillation; I10 Essential (primary) hypertension; I49.9 Cardiac arrhythmia, unspecified; Z87.891 Personal history of nicotine dependence; Z79.899 Other long term (current) drug therapy
CPT/HCPCS: 36415; 71045; 80048; 80053; 81001; 84484; 85025; 93005; 93306; G0378